=== PATIENT | male | born 2000 | race Caucasian/White ===

== ENCOUNTER 2018-05-19 01:12 | Emergency (ER) | payer OTHER ==
[2018-05-19 01:20] VITALS: BP 130/76; PULSE 94; RESP 20
[2018-05-19] MEDS ORDERED: ACETAMINOPHEN TAB 500 MG TAB PO STA (01:37)
--- NOTE | 2018-05-19 02:37 | ED ---
Fever HPI - General Chief Complaint: Fever Stated Complaint: fever Time Seen by Provider: 05/19/18 01:27 Source: patient Mode of arrival: ambulatory Limitations: no limitations - History of Present Illness Initial Comments: 17-year-old male patient presents to the emergency department today for evaluation of fever and sore throat. Patient states he had fever starting this morning. Patient states prior to arrival his temperature was 105F. States he has had chills and body aches. Patient states that the sore throat started a couple of days ago. States that he also had some vague upper abdominal pain a couple of days ago that did resolve. States he has been very fatigued and tired. Denies any nasal congestion or cough. Denies any nausea or vomiting. Denies any current abdominal pain, constipation, or diarrhea. Denies any rash. Patient denies any recent rash, shortness breath, chest pain, abdominal pain, nausea, vomiting, diarrhea, constipation, back pain, numbness, tingling, dizziness, weakness, hematuria, dysuria, urinary urgency, urinary frequency, headache, visual changes, or any other complaints. - Related Data Home Medications Medication Instructions Recorded Confirmed No Known Home Medications 05/19/18 05/19/18 Allergies Allergy/AdvReac Type Severity Reaction Status Date / Time No Known Allergies Allergy Verified 05/19/18 01:20 Review of Systems ROS Statement: Those systems with pertinent positive or pertinent negative responses have been documented in the HPI. ROS Other: All systems not noted in ROS Statement are negative. Past Medical History Past Medical History: No Reported History History of Any Multi-Drug Resistant Organisms: None Reported Past Surgical History: No Surgical Hx Reported Past Psychological History: No Psychological Hx Reported Smoking Status: Never smoker Past Alcohol Use History: Rare Past Drug Use History: None Reported General Exam Limitations: no limitations General appearance: alert, in no apparent distress, other (Social well-developed , well-nourished adult male patient in no acute distress. Vital signs upon presentation are temperature 101.8F, pulse 94, respirations 20, blood pressure 130/76, pulse ox 97% on room air.) Eye exam: Present: normal appearance, PERRL, EOMI. Absent: scleral icterus, conjunctival injection, periorbital swelling ENT exam: Present: mucous membranes moist, TM's normal bilaterally. Absent: normal exam, normal oropharynx (Pharyngeal erythema, right tonsillar exudate) Respiratory exam: Present: normal lung sounds bilaterally. Absent: respiratory distress, wheezes, rales, rhonchi, stridor Cardiovascular Exam: Present: regular rate, normal rhythm, normal heart sounds. Absent: systolic murmur, diastolic murmur, rubs, gallop, clicks GI/Abdominal exam: Present: soft, normal bowel sounds. Absent: distended, tenderness, guarding, rebound, rigid Neurological exam: Present: alert, oriented X3, CN II-XII intact Psychiatric exam: Present: normal affect, normal mood Skin exam: Present: warm, dry, intact, normal color. Absent: rash Course Vital Signs 05/19/18 05/19/18 01:16 03:12 Temperature 101.8 F H 99.5 F Pulse Rate 94 Respiratory 20 Rate Blood Pressure 130/76 O2 Sat by Pulse 97 Oximetry Medical Decision Making - Medical Decision Making 17-year-old male patient presents to the emergency department today for evaluation of sore throat. He also reports fatigue, fever, and an episode of abdominal pain a couple of days ago. Physical examination did reveal tonsillar erythema and right-sided exudate. No lymphadenopathy was noted. Abdomen soft and nontender. No organomegaly. Strep screen negative. Patient was positive for mono. Did discuss results and diagnosis with patient. Patient does play college baseball and is instructed regarding avoiding blows to the abdomen. We discussed supportive care and symptomatic management. He is instructed follow up with his primary care physician for recheck in 1-2 days. Return parameters discussed in detail. He verbalizes understanding and agrees with this plan. - Lab Data Lab Results 05/19/18 05/19/18 Range/Units 01:46 01:46 Heterophile Antibody Positive (Negative) Group A Strep Rapid Negative (Negative) Disposition Clinical Impression: Infectious mononucleosis Disposition: HOME SELF-CARE Condition: Good Instructions (If sedation given, give patient instructions): Mononucleosis (ED) , Fever in Adults (ED) Additional Instructions: Increase fluids. Alternate Tylenol and Motrin for fever control. Avoid contact sports and seek treatment immediately for any injury to the abdomen. Follow-up with her primary care physician for recheck in 1-2 days. Return to the emergency department immediately for any new, worsening, or concerning symptoms. Is patient prescribed a controlled substance at d/c from ED?: No Referrals: Nonstaff,Physician [Primary Care Provider] - 1-2 days Time of Disposition: 02:55
[2018-05-19 03:13] VITALS: TEMP 99.5
== END 2018-05-19 03:12 | disposition home or self-care (01) ==
LOC: EC 01:12
DX: B27.90 Infectious mononucleosis, unspecified without complication (principal)
CPT/HCPCS: 36415; 86308; 87081; 87430; 99283